=== PATIENT | male | born 1950 | race Caucasian/White ===

== ENCOUNTER → 2017-04-05 10:31 | Outpatient (CLI) | payer MEDICARE | END | disposition home or self-care (01) | LOC: D.RAD 04-03 08:00 | DX: K59.00 Constipation, unspecified (principal) ==

== ENCOUNTER → 2018-07-16 13:35 | Outpatient (CLI) | payer MEDICARE | END | disposition home or self-care (01) | LOC: D.LDO 13:35 | DX: M17.11 Unilateral primary osteoarthritis, right knee (principal); Z11.8 Encounter for screening for other infectious and parasitic diseases ==

== ENCOUNTER 2018-08-21 10:00 | Inpatient (IN) | payer MEDICARE ==
[~2018-08-21] VITALS: Ht 167.6 cm; Wt 78.2 kg
[~2018-08-21 10:00] MED LIST: COZAAR50 MG; LOPRESSOR25 MG PO
[2018-08-21 12:48] LABS: BASOPHILS 0.8 % (0-2); EOSINOPHILS 3.7 % (0-7); HEMATOCRIT 41.6 % (42.0-54.0); HEMOGLOBIN 14.3 g/dL (13.5-17.5); IMMATURE GRANULOCYTES 0.5 % (0-5); MCH 31.4 pg (26.0-34.0); MCHC 34.4 g/dL (31.0-37.0); MCV 91.4 fL (80.0-100.0); MEAN PLATELET VOLUME 9.2 fL (7.4-10.4); MONOCYTES 13.5 % (2-11); NEUTROPHILS 61.5 % (40-80); PLATELET COUNT 291 10x3/uL (130-400); RBC 4.55 10x6/uL (4.20-6.10); RDW 12.7 % (11.5-14.5); WBC 7.5 10x3/uL (4.8-10.8)
[2018-08-21 13:00] LABS: CALC OSMOLALITY 271 mosm/kg (275-300); CALCIUM 9.3 mg/dL (8.5-10.1); CARBON DIOXIDE 30.3 mmol/L (21.0-32.0); CHLORIDE - SERUM 99 mmol/L (98-107); CREATININE - SERUM 0.9 mg/dL (0.6-1.3); GLUCOSE 89 mg/dL (74-106); POTASSIUM - SERUM 5.1 mmol/L (3.5-5.1); SODIUM 137 mmol/L (136-145); UREA NITROGEN 11 mg/dL (7-18); eGFR NON AFRICAN AMERICAN 89 mL/min (90-120)
[2018-08-21 13:09] LABS: APTT 27.4 SECONDS (22.8-39.4); INR 0.94 (0.85-1.17); PROTIME 12.1 SECONDS (11.6-15.0)
[2018-08-21 13:10] LABS: APPEARANCE CLEAR (CLEAR); BILIRUBIN NEGATIVE (NEGATIVE); COLOR YELLOW (YELLOW); GLUCOSE NEGATIVE (NEGATIVE); KETONE NEGATIVE (NEGATIVE); NITRITE NEGATIVE (NEGATIVE); PROTEIN NEGATIVE (NEGATIVE); SPECIFIC GRAVITY 1.015 (1.005-1.020); UROBILINOGEN NORMAL (NORMAL)
[2018-08-26 05:45] VITALS: BP 114/65; BMI 27.8
--- NOTE | 2018-08-26 13:09 | OP ---
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 POSTOPERATIVE DIAGNOSIS: Severe degenerative arthritis of the right knee with varus deformation. PROCEDURE: Right total knee arthroplasty. SURGEON: Jag Abraham MD ASTRONOMY INSTRUCTOR: JOSE A Johnson INTRAOPERATIVE COMPLICATIONS: None. SUMMARY OF PATHOLOGIC FINDINGS: The patient did have a medial tibial defect. It was correctable without having to use revision components. In fact, he had such robust bone he was press fit and his patella was pristine and was not replaced. IMPLANTS USED: [place] Triathlon cruciate retaining size 5, distal femoral press fit component, tibial baseplate size 5 press fit, and a polyethylene insert size 11 tibial bearing. OPERATIVE SUMMARY IN DETAIL: After obtaining appropriate preoperative orthopedic surgery consent as well as anesthetic consultation, evaluation, and clearance, the patient was brought to the operating room and placed on the operating table in supine position. After general laryngeal mask airway was administered, tourniquet was placed on the proximal aspect of the right lower extremity. Right lower extremity was then prepped and draped in routine sterile fashion. Routine midline incision was taken down for paramedian arthrotomy. Patella was everted, distal femur was exposed. Soft tissue excision was done in the usual fashion. Distal intramedullary guidewire was utilized to create distal femoral cut. This was then followed by creating a proximal tibial intramedullary hole. Proximal tibia was cut. Gap bargain table clerk was then used to make sure that the appropriate balance technique was utilized. After drilling the holes using a gap balance through the size 5 chamfer cut, a guide was put into place that is the 4-in-1 cutter. All chamfer cuts were made. The osteophytes were removed. Final distal femoral and proximal tibial preparations were made after the trials had been taken through range of motion and found to be stable in all planes. After copious irrigation, the press fit components were put into place, taken through range of motion and found to be exquisitely stable to both medial and lateral varus valgus movement as well as anterior and posterior translation. Further irrigation was then followed by filling the inside of the knee with a gram of vancomycin and a gram of tobramycin. Paramedian arthrotomy was then closed with #2 Ethibond in [id number] fashion. This was followed by #1 Vicryl, 2-0 Vicryl, and skin boubacar. Sterile dressings were applied. The patient was awakened. Tourniquet was taken down. The patient was awakened and taken to recovery room in stable condition. All final needle and sponge counts were correct. OPERATIVE REPORT [id number] YOLIE ALEXANDER TRANSINT:[id number] Voice Confirmation ID: [id number] DOCUMENT ID: [id number] JARAD REYEZ, JAG LESTER at 1309 CC: [id number] DICTATION DATE: 08/26/18900 DIRECTOR OF DESIGN: 08/26/18 1117 ADM IN [place] [id number] [place] [address]
[2018-08-26 18:44] VITALS: BP 110/76
[2018-08-26 19:00] VITALS: BP 105/77
[2018-08-27] VITALS (7 sets, daily range): BP systolic 91–107; BP diastolic 44–63; Ht 167.6 cm; Wt 78.2 kg
[2018-08-27 05:17] LABS: HEMATOCRIT 33.7 % (42.0-54.0); HEMOGLOBIN 11.4 g/dL (13.5-17.5); MCH 30.7 pg (26.0-34.0); MCHC 33.8 g/dL (31.0-37.0); MCV 90.8 fL (80.0-100.0); MEAN PLATELET VOLUME 9.5 fL (7.4-10.4); RBC 3.71 10x6/uL (4.20-6.10); RDW 12.5 % (11.5-14.5); WBC 11.9 10x3/uL (4.8-10.8)
[2018-08-28 01:10] VITALS: BP 105/54
[2018-08-28 04:33] LABS: HEMATOCRIT 30.6 % (42.0-54.0); HEMOGLOBIN 10.2 g/dL (13.5-17.5); MCH 30.7 pg (26.0-34.0); MCHC 33.3 g/dL (31.0-37.0); MCV 92.2 fL (80.0-100.0); MEAN PLATELET VOLUME 9.5 fL (7.4-10.4); RBC 3.32 10x6/uL (4.20-6.10); RDW 12.7 % (11.5-14.5); WBC 11.3 10x3/uL (4.8-10.8)
[2018-08-28 05:36] VITALS: BP 116/54
[2018-08-28 08:45] VITALS: BP 117/67
[2018-08-28 12:59] VITALS: BP 124/62
--- NOTE | 2018-08-28 15:29 | MORECARE ---
CASE MANAGEMENT DISCHARGE SUMMARY PATIENT: YOLIE ALEXANDER UNIT: [id number] ADM DATE: 08/26/18 AGE: 67 : 50 SEX: M ROOM/BED: D.2212 AUTHOR: JONO LUEVANO PHYSICIAN: REFERRING PHYSICIAN: JAG ABRAHAM MD DATE OF SERVICE: 08/28/18 Discharge Plan Patient Name: YOLIE ALEXANDER [facility] [facility] 1950 Planned Disposition: Home or Self Care Anticipated Discharge Date: Discharge Date: Expected LOS: Initial Reviewer: [email or web address] Initial Review Date: 08/26/2018 Generated: 08/28/18 4:29 pm DCPIA - Discharge Planning Initial Assessment Updated by [email or web address]: Kristen Hernandez on 08/28/18 3:28 pm * Is the patient Alert and Oriented? Yes * How many steps to enter\exit or inside your home? * PCP irma * Pharmacy [facility] * Preadmission Environment Home with Family * ADLs Independent * Equipment Rolling Walker * Additional services required to return to the preadmission environment? Yes * Can the patient safely return to the preadmission environment? Yes * Has this patient been hospitalized within the prior 30 days at any hospital? No Patient Name: YOLIE ALEXANDER Page [phone] at 1529 All edits/amendments must be made on the electronic document DICTATION DATE: 08/28/181528 HOT METAL CAR OPERATOR: ELVI 08/28/18 152 RPT#: [id number] DC DATE: STATUS: ADM IN [facility] [address] [place] [address] END OF REPORT
--- NOTE | 2018-08-28 15:39 | MORECARE ---
CASE MANAGEMENT DISCHARGE SUMMARY PATIENT: YOLIE ALEXANDER UNIT: [id number] ADM DATE: 08/26/18 AGE: 67 : 50 SEX: M ROOM/BED: D.2212 AUTHOR: BASSEMDOC PHYSICIAN: REFERRING PHYSICIAN: JAG ABRAHAM MD DATE OF SERVICE: 08/28/18 Discharge Plan Patient Name: YOLIE ALEXANDER Facility: [facility]:[place] : 1950 Planned Disposition: Home or Self Care Anticipated Discharge Date: Discharge Date: Expected LOS: Initial Reviewer: [email or web address] Initial Review Date: 08/26/2018 Generated: 08/28/18 4:39 pm Comments DCP- Discharge Planning Updated by [email or web address]: Kristen Hernandez on 08/28/18 2:[address] Patient Name: YOLIE ALEXANDER Admission Status: Elective Accout number: [id number] Admission Date: 08-26-2018 : 1950 Admission Diagnosis: Attending: JAG ABRAHAM Current LOS: 2 Anticipated DC Date: Planned Disposition: Home or Self Care Primary Insurance: [employer] ADV Discharge Planning Comments: CM met with patient to assess discharge planning needs. Patient stated that he plans to return home and his girlfriend who he lives with will be the one to drive him home. There are 4 steps to enter in his home. He has a walker but will need a CPM and BSC at DC. He would like to have OP PT at [facility]. I will set that up prior to DC. IMM served and explained CM will continue to follow and assist with DC planning Appliance Service Supervisor: Kristen Hernandez DCPIA - Discharge Planning Initial Assessment Updated by [email or web address]: Kristen Hernandez on 08/28/18 3:28 pm * Is the patient Alert and Oriented? Yes * How many steps to enter\exit or inside your home? * PCP solis * Pharmacy [facility] by [facility] * Preadmission Environment Home with Family * ADLs Independent * Equipment Rolling Walker * Additional services required to return to the preadmission environment? Yes * Can the patient safely return to the preadmission environment? Yes * Has this patient been hospitalized within the prior 30 days at any hospital? No Coverage Notice Reviewer: [email or web address] Alexander Hernandez Notice Issued Date-Time: 08/28/2018 14:30 Notice Type: IM Discharge Notice Notice Delivered To: Patient Relationship to Patient: Nuclear Powerplant Mechanic Helper Name: Delivery Method: HAND - Hand Delivered Amparo Days: Prior Verbal Notification: Recipient Understood Notice: Yes Recipient Signature: Yes Med Rec Note Co-signed by Attending: Coverage Notice Comment: Last DP export: 08/28/18 2:29 pm Patient Name: YOLIE ALEXANDER Page [phone] at 1539 All edits/amendments must be made on the electronic document DICTATION DATE: 08/28/18 1539 CHIEF CREATIVE OFFICER: ELVI 08/28/18 1539 RPT#: [id number] DC DATE: STATUS: ADM IN [facility] [address] [place] [address] END OF REPORT
[2018-08-28 20:23] VITALS: BP 124/64
[2018-08-29 04:23] VITALS: BP 113/60
[2018-08-29] MEDS ORDERED: ELIQUIS2.5 MG PO (06:53)
[2018-08-29] MEDS ORDERED: OXYCODONE-APAP1 TAB PO (06:54)
[2018-08-29 08:22] VITALS: BP 106/61
--- NOTE | 2018-08-29 09:00 | MORECARE ---
CASE MANAGEMENT DISCHARGE SUMMARY PATIENT: YOLIE ALEXANDER UNIT: [id number] ADM DATE: 08/26/18 AGE: 67 : 50 SEX: M ROOM/BED: D.2212 AUTHOR: JONO LUEVANO PHYSICIAN: REFERRING PHYSICIAN: JAG ABRAHAM MD DATE OF SERVICE: 08/29/18 Discharge Plan Patient Name: YOLIE ALEXANDER Facility: [facility]:[place] : 1950 Planned Disposition: Home or Self Care Anticipated Discharge Date: Discharge Date: Expected LOS: Initial Reviewer: [email or web address] Initial Review Date: 08/26/2018 Generated: 08/29/18 10:00 am Comments DCP- Discharge Planning Updated by [email or web address]: Kristen Hernandez on 08/29/18 7:[address] PATIENTS OP PT HAS BEEN SET UP FOR 09/02 @ 10:45AM AT [facility] OP PT DCP- Discharge Planning Updated by [email or web address]: Kristen Hernandez on 08/28/18 2:[address] Patient Name: YOLIE ALEXANDER Admission Status: Elective Accout number: [id number] Admission Date: 08-26-2018 : 1950 Admission Diagnosis: Attending: JAG ABRAHAM Current LOS: 2 Anticipated DC Date: Planned Disposition: Home or Self Care Primary Insurance: [employer] ADV Discharge Planning Comments: CM met with patient to assess discharge planning needs. Patient stated that he plans to return home and his girlfriend who he lives with will be the one to drive him home. There are 4 steps to enter in his home. He has a walker but will need a CPM and BSC at DC. He would like to have OP PT at [facility]. I will set that up prior to DC. IMM served and explained CM will continue to follow and assist with DC planning Department Of Mathematics Chair: Kristen Hernandez DCPIA - Discharge Planning Initial Assessment Updated by [email or web address]: Kristen Hernandez on 08/28/18 3:28 pm * Is the patient Alert and Oriented? Yes * How many steps to enter\exit or inside your home? * PCP [facility] * Pharmacy [facility] * Preadmission Environment Home with Family * ADLs Independent * Equipment Rolling Walker * Additional services required to return to the preadmission environment? Yes * Can the patient safely return to the preadmission environment? Yes * Has this patient been hospitalized within the prior 30 days at any hospital? No Coverage Notice Reviewer: [id number] Alexander Hernandez Notice Issued Date-Time: 08/28/2018 14:30 Notice Type: IM Discharge Notice Notice Delivered To: Patient Relationship to Patient: Napper Runner Name: Delivery Method: HAND - Hand Delivered Amparo Days: Prior Verbal Notification: Recipient Understood Notice: Yes Recipient Signature: Yes Med Rec Note Co-signed by Attending: Coverage Notice Comment: Last DP export: 08/28/18 2:39 pm Patient Name: YOLIE ALEXANDER Page [phone] at 0900 All edits/amendments must be made on the electronic document DICTATION DATE: 08/29/18899 CALENDER SUPERVISOR: ELVI 08/29/18899 RPT#: [id number] DC DATE: STATUS: ADM IN [facility] [address] [place] [address] END OF REPORT
--- NOTE | 2018-08-29 09:13 | MORECARE ---
CASE MANAGEMENT DISCHARGE SUMMARY PATIENT: YOLIE ALEXANDER UNIT: [id number] ADM DATE: 08/26/18 AGE: 67 : 50 SEX: M ROOM/BED: D.2212 AUTHOR: JONO LUEVANO PHYSICIAN: REFERRING PHYSICIAN: AJG ABRAHAM MD DATE OF SERVICE: 08/29/18 Discharge Plan Patient Name: YOLIE ALEXANDER Facility: [facility]:[place] : 1950 Planned Disposition: Home or Self Care Anticipated Discharge Date: Discharge Date: Expected LOS: Initial Reviewer: [email or web address] Initial Review Date: 08/26/2018 Generated: 08/29/18 10:13 am Comments DCP- Discharge Planning Updated by [id number]: Kristen Hernandez on 08/29/18 8:[address] SPOKE WITH REYES (DR BRONSON OFFICE) AND PATIENT, HE DID NOT WANT A CPM OR A BSC. HE HAS A WALKER AT HOME. PATIENT IS DISCHARGING HOME TODAY. DCP- Discharge Planning Updated by [email or web address]: Kristen Hernandez on 08/29/18 7:[address] PATIENTS OP PT HAS BEEN SET UP FOR 09/02 @ 10:45AM AT [facility] OP PT DCP- Discharge Planning Updated by [email or web address]: Kristen Hernandez on 08/28/18 2:[address] Patient Name: YOLIE ALEXANDER Admission Status: Elective Accout number: [id number] Admission Date: 08-26-2018 : 1950 Admission Diagnosis: Attending: JAG ABRAHAM Current LOS: 2 Anticipated DC Date: Planned Disposition: Home or Self Care Primary Insurance: [employer] MEDICARE ADV Discharge Planning Comments: CM met with patient to assess discharge planning needs. Patient stated that he plans to return home and his girlfriend who he lives with will be the one to drive him home. There are 4 steps to enter in his home. He has a walker but will need a CPM and BSC at DC. He would like to have OP PT at [facility]. I will set that up prior to DC. IMM served and explained CM will continue to follow and assist with DC planning Engineer Operations And Maintenance: Kristen Hernandez DCPIA - Discharge Planning Initial Assessment Updated by [email or web address]: Kristen Hernandez on 08/28/18 3:28 pm * Is the patient Alert and Oriented? Yes * How many steps to enter\exit or inside your home? * PCP irma * Pharmacy [facility] * Preadmission Environment Home with Family * ADLs Independent * Equipment Rolling Walker * Additional services required to return to the preadmission environment? Yes * Can the patient safely return to the preadmission environment? Yes * Has this patient been hospitalized within the prior 30 days at any hospital? No Coverage Notice Reviewer: [email or web address] - Kristen Hernandez Notice Issued Date-Time: 08/28/2018 14:30 Notice Type: IM Discharge Notice Notice Delivered To: Patient Relationship to Patient: Oracle Consultant Name: Delivery Method: HAND - Hand Delivered Amparo Days: Prior Verbal Notification: Recipient Understood Notice: Yes Recipient Signature: Yes Med Rec Note Co-signed by Attending: Coverage Notice Comment: Last DP export: 08/29/18 8:00 a Patient Name: YOLIE ALEXANDER Page [phone] at 0913 All edits/amendments must be made on the electronic document DICTATION DATE: 08/29/18911 BAG MENDER: ELVI 08/29/18911 RPT#: [id number] DC DATE: STATUS: ADM IN [facility] [address] [place] [address] END OF REPORT
== END 2018-08-29 11:11 | disposition home or self-care (01) | DRG 470 ==
LOC: D.SDCHOLD 08-26 05:00 → D.MS 08-26 05:00 → D.SDCHOLD 08-26 07:30 → D.MS 08-26 18:20
PROVIDERS: ADMIT Orthopaedic Surgery
PROC: 0SRC0JZ Replacement of Right Knee Joint with Synthetic Substitute, Open Approach (ICD-10-PCS; principal; 2018-08-26 07:30)
DX: M17.11 Unilateral primary osteoarthritis, right knee (principal); I10 Essential (primary) hypertension

== ENCOUNTER → 2018-11-12 14:33 | Outpatient (CLI) | payer MEDICARE ==
[2018-08-27 03:00] VITALS: BMI 27.8
[~2018-11-12 14:33] MED LIST changes: +ELIQUIS2.5 MG PO; +OXYCODONE-APAP1 TAB PO
== END | disposition home or self-care (01) ==
LOC: D.US 14:00
PROVIDERS: ATTEND Orthopaedic Surgery
DX: R60.0 Localized edema (principal); M79.604 Pain in right leg

== ENCOUNTER 2019-08-24 18:19 | Inpatient (IN) | payer MEDICARE ==
[~2019-08-24] VITALS: Ht 167.6 cm; Wt 81.2 kg
[~2019-08-24 18:19] MED LIST changes: -COZAAR50 MG; +COZAAR50 MG PO
[2019-08-24] MEDS ORDERED: ALBUTEROL INHALER (18:34)
[2019-08-24 19:02] LABS: BASOPHILS 1.1 % (0-2); HEMOGLOBIN 13.9 g/dL (13.5-17.5); IMMATURE GRANULOCYTES 0.8 % (0-5); LYMPHOCYTES 17.9 % (15-50); MCH 30.8 pg (26.0-34.0); MCHC 33.9 g/dL (31.0-37.0); MCV 90.7 fL (80.0-100.0); MONOCYTES 9.2 % (2-11); RBC 4.52 10x6/uL (4.20-6.10); WBC 10.6 10x3/uL (4.8-10.8)
[2019-08-24 19:05] LABS: PLATELET COUNT 308 10x3/uL (130-400)
[2019-08-24 19:12] LABS: APTT 29.5 SECONDS (22.8-39.4); INR 1.03 (0.85-1.17)
[2019-08-24 19:17] LABS: CALC OSMOLALITY 256 mosm/kg (275-300); CARBON DIOXIDE 25.6 mmol/L (21.0-32.0); CHLORIDE - SERUM 93 mmol/L (98-107); CREATININE - SERUM 0.8 mg/dL (0.6-1.3); GLUCOSE 85 mg/dL (74-106); POTASSIUM - SERUM 4.5 mmol/L (3.5-5.1); SODIUM 129 mmol/L (136-145); UREA NITROGEN 11 mg/dL (7-18); eGFR NON AFRICAN AMERICAN > 90 mL/min (90-120)
[2019-08-24 19:37] LABS: ALKALINE PHOSPHATASE 57 U/L (46-116); ALT (SGPT) 26 U/L (10-68); BILIRUBIN - TOTAL 0.74 mg/dL (0.2-1.3); CKMB 6.3 U/L (0.0-3.6); CREATINE KINASE 251 UL (21-232); PRO BNP 74 pg/mL (0-125); PROTEIN - SERUM 7.6 g/dL (6.4-8.2); TROPONIN-I 0.035 ng/mL (0.000-0.060)
[2019-08-24 21:15] VITALS: BP 132/75
--- NOTE | 2019-08-24 21:57 | NUR ---
PT ARRIVED VIA W/C TO RM 2108 WITH DX COPD EXACERBATION. NO DISTRESS NOTED. PT STATES FEELS MUCH IMPROVED.
[2019-08-24] MEDS ORDERED: ALBUTEROL SULF8.5 GM INH (22:09)
[2019-08-24 22:19] VITALS: BP 151/78; BMI 28.9
--- NOTE | 2019-08-24 22:47 | NUR ---
ADMISSION ASSESSMENT, HISTORY AND HOME MED LIST COMPLETED. PT STATED HE ONLY TOOK JOSE ELIQUIS FOR 30 DAYS S/P R TOTAL KNEE REPLACEMENT. ALERT AND ORIENTED TO PERSON,PLACE AND TIME. HOBBS. O2 2LNC. VSS. SR PER CM HR 87. LUNGS DIMINISHED IN R SIDE, FAINT EXP WHEEZE TO L SIDE. IV TO RFA SL. PT STATES HE FEELS MUCH IMPROVED. SR UP X1, CALL LIGHT WITHIN REACH. NON SLID SOCKS PLACED ON PT.
--- NOTE | 2019-08-25 00:25 | NUR ---
RT TX IN PROGRESS. PT DENIES ANY NEEDS. CALL LIGHT WITHIN REACH.
[2019-08-25 00:45] VITALS: BP 134/82
--- NOTE | 2019-08-25 02:05 | NUR ---
PT AWAKE; DENIES ANY DISCOMOFRT. CALL LIGHT WITHIN REACH.
[2019-08-25 04:25] VITALS: BP 123/72
--- NOTE | 2019-08-25 04:26 | NUR ---
PT AWAKE; DENIES ANY SOB OR DISCOMFORT. CALL LIGHT WITHIN REACH.
[2019-08-25 05:05] LABS: BASOPHILS 0.2 % (0-2); EOSINOPHILS 0.7 % (0-7); HEMATOCRIT 39.9 % (42.0-54.0); HEMOGLOBIN 13.7 g/dL (13.5-17.5); IMMATURE GRANULOCYTES 0.5 % (0-5); LYMPHOCYTES 7.9 % (15-50); MCH 30.9 pg (26.0-34.0); MCHC 34.3 g/dL (31.0-37.0); MCV 89.9 fL (80.0-100.0); MEAN PLATELET VOLUME 9.2 fL (7.4-10.4); MONOCYTES 0.5 % (2-11); NEUTROPHILS 90.2 % (40-80); PLATELET COUNT 287 10x3/uL (130-400); RBC 4.44 10x6/uL (4.20-6.10)
[2019-08-25 05:31] LABS: CALC OSMOLALITY 263 mosm/kg (275-300); CALCIUM 9.3 mg/dL (8.5-10.1); CARBON DIOXIDE 24.3 mmol/L (21.0-32.0); CHLORIDE - SERUM 94 mmol/L (98-107); CREATININE - SERUM 0.9 mg/dL (0.6-1.3); MAGNESIUM - SERUM 2.1 mg/dL (1.8-2.4); POTASSIUM - SERUM 4.3 mmol/L (3.5-5.1); SODIUM 131 mmol/L (136-145); UREA NITROGEN 11 mg/dL (7-18); eGFR NON AFRICAN AMERICAN 89 mL/min (90-120)
[2019-08-25 05:43] LABS: GLUCOSE 135 mg/dL (74-106)
--- NOTE | 2019-08-25 06:00 | NUR ---
VSS THROUGHOTU NIGHT. SR PER CM. PT DENIED ANY DISCOMFORT. NEEDS MET; WILL CONTINUE TO MONITOR.
[2019-08-25 08:00] VITALS: BP 130/84
--- NOTE | 2019-08-25 08:33 | NUR ---
AM MEDS GIVEN AT THIS TIMEL, PT A/O X4, RESP EVEN AND NONLABORED ON RA. RT FA IV SL. PT DENIES ANY NEEDS AT THIS TIME. CALL LIGHT IN REACH, NAD NOTED,W ILL CONTINUE TO MONITOR.
--- NOTE | 2019-08-25 13:41 | NUR ---
IVPB ZITHROMAX HUNG AT THIS TIME. PT RESTING COMFORTABLY IN BED, DENIES ANY NEEDS AT THIS TIME. [facility], NAD NOTED,W ILL CONTINUE TO MONITOR.
[2019-08-25 13:48] VITALS: Ht 167.6 cm; Wt 81.2 kg
[2019-08-25 14:55] VITALS: BP 123/69
[2019-08-25 17:42] VITALS: BP 119/75
--- NOTE | 2019-08-25 19:29 | NUR ---
REPORT RECIEVED AND ROUNDING COMPLETE. PATIENT IN BED IN HIGH FOWLERS POSITION. PATIENT HAS FAMILY IN THE ROOM. PATIENT HAS NASAL CANNULA ON AT THIS TIME, O2 AT 2L. PAITENT SHOWS NO S/SX OF DISTRESS AT THIS TIME. PATIENT PIV IS PATENT AND SHOWS NO S/SX OF INFILTRATION. PATIENT STATES HE HAS NO NEEDS AT THIS TIME. CALL LIGHT WITHIN REACH AND BED IN LOWEST LOCKED POSITION.
[2019-08-25 20:30] VITALS: BP 117/65
--- NOTE | 2019-08-25 23:38 | NUR ---
I have reviewed this patient and I concur with the Shift Assessment completed by the Licensed Practical Nurse today this shift.
[2019-08-26 00:25] VITALS: BP 115/71
[2019-08-26 04:27] VITALS: BP 103/67
--- NOTE | 2019-08-26 07:00 | NUR ---
RECEIVED BEDSIDE SHIFT REPORT. ASSUMED CARE OF PATIENT. CALL LIGHT WITHIN REACH. PATIENT LYING IN BED WITH EYES OPEN, ALERT/ORIENTED, HOPING TO GO HOME TODAY. FOLLOWED BY INTEGRATED LOGISTICS PROGRAMS DIRECTOR FOR BEDSIDE SHIFT REPORT. NO DISTRESS.
--- NOTE | 2019-08-26 08:08 | NUR ---
[place] PAGED PATIENT IS OUT TO DESK STATING THAT HE HAS TO LEAVE THIS MORNING AND THE MD DID NOT MAKE ROUNDS UNTIL ABOUT 2PM YESTERDAY AFTERNOON.
[2019-08-26 11:01] VITALS: BP 123/68
--- NOTE | 2019-08-26 12:02 | NUR ---
PATIENT STILL WAITING TO GO HOME AND IS NOW CALLING THIS BAKER TEST FROM THE HALLWAY WHILE THIS BAKER TEST IS IN ANOTHER ROOM.
--- NOTE | 2019-08-26 12:12 | NUR ---
PATIENT REQUESTED TO LEAVE AMA. THIS PLAN REP NOTIFIED PRIMARY AT 0800 THAT PATIENT WANTED TO LEAVE AND NOBODY EVER CAME TO THE FLOOR TO TALK TO THE PATIENT. 20 GAUGE IV TO RIGHT FOREARM REMOVED. CATHETER TIP INTACT. BUSINESS CONTROLLER REMOVED AND RETURNED TO MONITORS. PAGED VALENTINA ANTOINE AT THIS TIME TO NOTIFY HER THAT NOW PATIENT HAS WENT AMA.
--- NOTE | 2019-08-26 12:15 | NUR ---
PATIENT LEFT UNIT AMA WITH ALL PERSONAL BELONGINGS. PATIENT LEFT UNIT IN NO DISTRESS.
--- NOTE | 2019-08-26 12:19 | NUR ---
[place] ANTOINE NOTIFIED OF PATIENT LEAVING AMA. VALENTINA STATES SHE WAS NOT AWARE THAT THE PATIENT WANTED TO LEAVE THIS AM AND THAT SHE DID NOT HEAR SUSHMA EVANS RELAY THAT MESSAGE TO HER ON THE PHONE. SUSHMA SPOKE WITH VALENTINA ON THE PHONE AT THIS TIME REGARDING THIS.
--- NOTE | 2019-08-27 08:43 | MORECARE ---
CASE MANAGEMENT DISCHARGE SUMMARY PATIENT: YOLIE ALEXANDER UNIT: [id number] ADM DATE: 08/25/19 AGE: 68 : 50 SEX: M ROOM/BED: D.2108 AUTHOR: JONO LUEVANO PHYSICIAN: REFERRING PHYSICIAN: JELLY DEGROOT MD DATE OF SERVICE: 08/27/19 Discharge Plan Patient Name: YOLIE ALEXANDER Facility: [facility]:[place] : 1950 Planned Disposition: Home Anticipated Discharge Date: 08/26/19 Discharge Date: 08/26/2019 Expected LOS: 1 Initial Reviewer: [id number] Initial Review Date: 08/27/2019 Generated: 08/27/19 9:42 am Patient Name: YOLIE ALEXANDER Page [phone] at 0843 All edits/amendments must be made on the electronic document DICTATION DATE: 08/27/19841 CONSTRUCTION PROJECT MANAGER: ELVI 08/27/19841 RPT#: [id number] DC DATE:08/26/19 STATUS: DIS IN [facility] [address] [place] [address] END OF REPORT
[2019-08-27 14:09] LABS: PROCALCITONIN 0.03 ng/mL (0.00-0.08)
== END 2019-08-26 12:15 | disposition left against medical advice (07) | DRG 190 ==
LOC: D.ER 18:19 → OBSVTIME 20:07 → D.M2 20:07
PROVIDERS: Family Medicine; Internal Medicine Pulmonary Disease; ADMIT Emergency Medicine; ATTEND Emergency Medicine
DX: J44.1 Chronic obstructive pulmonary disease with (acute) exacerbation (principal); J96.01 Acute respiratory failure with hypoxia; E87.1 Hypo-osmolality and hyponatremia; Z87.891 Personal history of nicotine dependence; I10 Essential (primary) hypertension; D64.9 Anemia, unspecified

== ENCOUNTER 2019-10-31 07:37 | Inpatient (IN) | payer MEDICARE ==
[~2019-10-31] VITALS: Ht 167.6 cm; Wt 80.0 kg
[~2019-10-31 07:37] MED LIST changes: +ALBUTEROL INHALER; +ALBUTEROL SULF8.5 GM INH
[2019-10-31 08:01] LABS: BASOPHILS 1.6 % (0-2); EOSINOPHILS 4.7 % (0-7); HEMATOCRIT 39.8 % (42.0-54.0); HEMOGLOBIN 13.8 g/dL (13.5-17.5); IMMATURE GRANULOCYTES 2.9 % (0-5); LYMPHOCYTES 17.9 % (15-50); MCH 31.5 pg (26.0-34.0); MCHC 34.7 g/dL (31.0-37.0); MCV 90.9 fL (80.0-100.0); MEAN PLATELET VOLUME 9.3 fL (7.4-10.4); MONOCYTES 16.7 % (2-11); NEUTROPHILS 56.2 % (40-80); PLATELET COUNT 276 10x3/uL (130-400); RBC 4.38 10x6/uL (4.20-6.10); RDW 13.9 % (11.5-14.5); WBC 6.2 10x3/uL (4.8-10.8)
[2019-10-31 08:11] VITALS: BP 123/69
[2019-10-31 08:26] LABS: CALC OSMOLALITY 261 mosm/kg (275-300); CALCIUM 9.3 mg/dL (8.5-10.1); CARBON DIOXIDE 24.2 mmol/L (21.0-32.0); CHLORIDE - SERUM 95 mmol/L (98-107); CREATININE - SERUM 0.9 mg/dL (0.6-1.3); GLUCOSE 92 mg/dL (74-106); POTASSIUM - SERUM 4.4 mmol/L (3.5-5.1); SODIUM 131 mmol/L (136-145); UREA NITROGEN 11 mg/dL (7-18); eGFR NON AFRICAN AMERICAN 89 mL/min (90-120)
[2019-10-31 08:29] VITALS: BP 115/67
[2019-10-31 08:37] LABS: ALBUMIN 3.6 g/dL (3.4-5.0); ALKALINE PHOSPHATASE 296 U/L (30-120); ALT (SGPT) 548 U/L (10-68); AMYLASE - SERUM 51 U/L (25-115); LIPASE 135 U/L (73-393); TROPONIN-I < 0.017 ng/mL (0.000-0.060)
[2019-10-31] MEDS ORDERED: SAW PALMETTO450 MG PO (08:53)
[2019-10-31] MEDS ORDERED: L-ARGININE500 MG PO (08:53)
[2019-10-31 09:00] VITALS: BP 105/77
--- NOTE | 2019-10-31 09:10 | NUR ---
PT TO MRI
--- NOTE | 2019-10-31 10:21 | NUR ---
URINE TO LAB
[2019-10-31 10:35] LABS: BACTERIA FEW /hpf (NEGATIVE); BILIRUBIN 2+ (NEGATIVE); EPITHELIAL CELLS OCC /hpf (0-5); GLUCOSE NEGATIVE (NEGATIVE); KETONE NEGATIVE (NEGATIVE); NITRITE NEGATIVE (NEGATIVE); SPECIFIC GRAVITY 1.015 (1.005-1.020); UROBILINOGEN NORMAL (NORMAL); WHITE CELLS - URINE RARE /hpf (NEGATIVE)
[2019-10-31 10:36] LABS: INR 0.84 (0.85-1.17); PROTIME 11.5 SECONDS (11.6-15.0)
[2019-10-31 11:49] LABS: % SATURATION 41 % (15-55); IRON 134 ug/dl (35-150); TOTAL IRON BIND CAPACITY 324 ug/dl (260-445); UNSAT IRON BIND CAPACITY 190 ug/dl (150-375)
[2019-10-31 17:18] VITALS: BP 154/89
--- NOTE | 2019-10-31 18:08 | NUR ---
NS 0.9% INFUSING UPON TRANSFER TO ASSIGNED ROOM. APPX 400 ML REMAINING AT 125 ML/H
--- NOTE | 2019-10-31 18:51 | NUR ---
PATIENT RECEIVED TO ROOM ALERT AND ORIENTED X4 AND ORIENTED TO ROOM . IV TO RT A/C WITH IVF INFUSING AT PRESCRIBED RATE WITH NO S/S OF INFECTION/INFILTRATION. DENIES ANY PAIN OR DISCOMFORT AT THIS TIME.
--- NOTE | 2019-10-31 19:40 | NUR ---
PT ARRIVED TO ROOM FROM ER AT SHIFT CHANGE. PT REPORTS DARK URINE. DENIES PAIN. SKIN APPEARS JAUNDICED. REVIEWED HISTORY AND HOME MEDS. NO NEEDS. WILL CONTINUE TO MONITOR.
[2019-11-01 03:06] VITALS: BP 143/82; Ht 167.6 cm; Wt 80.0 kg
[2019-11-01 06:14] LABS: APTT 27.8 SECONDS (22.8-39.4); INR 0.88 (0.85-1.17); PROTIME 11.9 SECONDS (11.6-15.0)
[2019-11-01 06:19] LABS: MAGNESIUM - SERUM 2.1 mg/dL (1.8-2.4); PHOSPHOROUS 3.5 mg/dL (2.5-4.9)
[2019-11-01 07:12] LABS: HEPATITIS C ANTIBODY <0.1 S/CO RAT (0.0-0.9)
[2019-11-01 07:59] LABS: BASOPHILS 1.2 % (0-2); EOSINOPHILS 4.8 % (0-7); HEMATOCRIT 35.7 % (42.0-54.0); HEMOGLOBIN 12.2 g/dL (13.5-17.5); IMMATURE GRANULOCYTES 1.9 % (0-5); LYMPHOCYTES 17.8 % (15-50); MCH 31.3 pg (26.0-34.0); MCHC 34.2 g/dL (31.0-37.0); MCV 91.5 fL (80.0-100.0); MEAN PLATELET VOLUME 9.5 fL (7.4-10.4); MONOCYTES 16.1 % (2-11); NEUTROPHILS 58.2 % (40-80); PLATELET COUNT 263 10x3/uL (130-400); RDW 14.2 % (11.5-14.5); WBC 4.8 10x3/uL (4.8-10.8)
[2019-11-01 08:08] VITALS: BP 129/71
[2019-11-01 08:08] LABS: ALBUMIN 2.7 g/dL (3.4-5.0); ALKALINE PHOSPHATASE 238 U/L (30-120); ALT (SGPT) 431 U/L (10-68); BILIRUBIN - TOTAL 9.64 mg/dL (0.2-1.3); CALC OSMOLALITY 268 mosm/kg (275-300); CALCIUM 8.6 mg/dL (8.5-10.1); CHLORIDE - SERUM 103 mmol/L (98-107); CREATININE - SERUM 0.9 mg/dL (0.6-1.3); GLUCOSE 91 mg/dL (74-106); POTASSIUM - SERUM 4.3 mmol/L (3.5-5.1); PROTEIN - SERUM 6.2 g/dL (6.4-8.2); SODIUM 135 mmol/L (136-145); UREA NITROGEN 10 mg/dL (7-18); eGFR NON AFRICAN AMERICAN 89 mL/min (90-120)
[2019-11-01 08:10] LABS: TRANSFERRIN 254 mg/dL (200-370)
--- NOTE | 2019-11-01 09:00 | NUR ---
ASSESSMENT PER FLOW SHEET. PATIENT IS WITHOUT DISTRESS.CALL LIGHT IN REACH
[2019-11-01 12:43] VITALS: BP 145/84
[2019-11-01 16:39] VITALS: BP 157/86
--- NOTE | 2019-11-01 17:16 | NUR ---
LEFT UNIT FOR TRANSPORT HOME. DECLINED WHEELCHAIR
--- NOTE | 2019-11-01 17:16 | NUR ---
IV DCD WITH CATH TIP INTACT. DISCHARGE INSTRUCTIONS,STATES UNDERSTANDING
[2019-11-03 10:08] LABS: ANA REFLEX - DIRECT Negative (Negative)
[2019-11-03 21:06] LABS: DEOXYCHOLIC ACID 0.2 umol/L (()); URSODEOXYCHOLIC ACID 1.8 umol/L (())
== END 2019-11-01 17:17 | disposition home health service (06) | DRG 442 ==
LOC: D.ER 07:37 → D.MS 15:08
PROVIDERS: Family Medicine; Internal Medicine Gastroenterology; ADMIT Internal Medicine Nephrology; ATTEND Internal Medicine Nephrology
DX: E80.6 Other disorders of bilirubin metabolism (principal); E87.1 Hypo-osmolality and hyponatremia; R74.0 Nonspecific elevation of levels of transaminase and lactic acid dehydrogenase [LDH]; I10 Essential (primary) hypertension; J44.9 Chronic obstructive pulmonary disease, unspecified; J45.909 Unspecified asthma, uncomplicated; D64.9 Anemia, unspecified